=== PATIENT | female | born 1945 | race Caucasian/White ===

== ENCOUNTER → 2017-09-28 | Outpatient (CLI) | payer MEDICARE, OTHER ==
[~2017-09-28] MED LIST: PENI-24 PO
[2017-09-28 09:10] LABS: PLATELET COUNT, AUTOMATED 152 K/uL (150-450)
[2017-09-28 09:33] LABS: LDL CHOLESTEROL 93 mg/dl
== END ==
LOC: LAB 08:46
PROVIDERS: ATTEND Internal Medicine
DX: E78.00 Pure hypercholesterolemia, unspecified (principal); D72.820 Lymphocytosis (symptomatic); R00.1 Bradycardia, unspecified
CPT/HCPCS: 36415; 81001; 82040; 82247; 82310; 82374; 82435; 82465; 82565; 82947; 83718; 84075; 84132; 84155; 84295; 84443; 84450; 84460; 84478; 84520; 85025

== ENCOUNTER → 2017-10-03 | Outpatient (CLI) | payer MEDICARE, OTHER ==
[~2017-10-03] MED LIST changes: +MULT1TAB54 PO
== END ==
LOC: LAB 16:18
PROVIDERS: ATTEND Internal Medicine
DX: M79.672 Pain in left foot (principal)
CPT/HCPCS: 36415; 82607; 82746

== ENCOUNTER → 2018-02-06 | Outpatient (CLI) | payer MEDICARE, OTHER ==
--- NOTE | 2018-02-06 13:40 | RADIOLOGY IMAGING REPORT ---
FACILITY: [facility] - [place] PATIENT NAME: Bernadette Simon : 1945 MR: [id number] V: [id number] EXAM DATE: ORDERING PHYSICIAN: JAYLYN FLOWER TECHNOLOGIST: Location: [facility] - [place], [place] Patient: Bernadette Simon : 1945 Visit/Account:[id number] Date of Sevice: 02/06/2018 DEXA Scan Clinical history: Postmenopausal. Comparison: DEXA scan from 08/14/2000. LUMBAR SPINE: The bone mineral density (BMD) measured from L1-L4 correlates with a Z-score of 1.1 and a T-score of 0.3 which is Normal as defined by the World Health Organization. The corresponding risk of fracture in the lumbar spine is Not increased compared with a young adult reference population. This value bragg s decrease by 17.9 % since the prior study. More than 5% change is considered significant. HIP: Bone mineral density (BMD) measured in the LEFT total hip region correlates with a Z-score 0.3 and a T-score of -1 which is normal as defined by the World Health Organization. The corresponding risk of fracture in the hip is 2 sonia es increased compared to a young adult reference population. This value has decrease by 21.7 % since the prior study. More than 5% change is considered significant. T score left femoral neck -1.4 Bone mineral density (BMD) measured in the Femoral Neck region measures 0.839 g/cm?. IMPRESSION: 1. Lumbar spine: Normal. There has been 17.9% decrease in the bone mineral density since the previo us exam. 2. Left Total Hip: Normal. There has been 21.7% decrease in the bone mineral density since the prev ious exam. 3. Femoral Neck: Bone Mineral Density is 0.839 g/cm? The next DEXA scan of this patient should include the following sites: L1-L4 and the left hip. FRAX? WHO Fracture Risk Assessment Tool link: <http://www.shef.ac.uk/FRAX/tool.jsp?locationValue=9> PLEASE NOTE: 1) The World Health Organization defines low BMD as follows: T-score Normal > -1 Osteopenia < -1 and > -2.5 Osteoporosis < -2.5 without fractures Established osteoporosis < -2.5 with fractures 2) In general, you may wish to consider: Diagnosis Treatment Follow-up DEXA Normal BMD Prevention 2-3 years Osteopenia Prevention/therapy 1-2 years Osteoporosis Therapy Yearly 3) Fracture risk estimated from the T-score is more accurate for vertebral fractures (often spontane ous) than for hip fractures. Report Dictated By: Ximena Madsen MD at 02/06/2018 1:34 PM Report E-Signed By: Ximena Madsen MD at 02/06/2018 1:36 PM WSN:[id number]
== END ==
LOC: RAD 11:54
PROVIDERS: ATTEND Internal Medicine
DX: Z13.820 Encounter for screening for osteoporosis (principal); Z78.0 Asymptomatic menopausal state
CPT/HCPCS: 77080

== ENCOUNTER → 2018-03-12 | Outpatient (CLI) | payer MEDICARE, OTHER ==
--- NOTE | 2018-03-12 17:28 | RADIOLOGY IMAGING REPORT ---
FACILITY: [facility] - [place] PATIENT NAME: RODDY MEJÍA : [id number] MR: [id number] V: [id number] EXAM DATE: [id number] ORDERING PHYSICIAN: JAYLYN FLOWER TECHNOLOGIST: Gladis Ulloa PROCEDURE:BILATERAL DIGITAL SCREENING MAMMOGRAM WITH CAD ASSISTED INTERPRETATION & 3D TOMOSYNTHESIS COMPARISON:Prior mammograms 03/02/17, 05/25/15, 05/18/14, 04/13/13, 04/08/12, 04/04/11. INDICATIONS:screening FINDINGS: A small amount of fibroglandular tissue is seen throughout the breasts. The parenchymal pattern has remained stable allowing for difference in mammographic technique & patient positioning. There is no evidence of malignant appearing mass, malignant appearing calcifications or other secondary sign of malignancy in either breast. DIAGNOSTIC CATEGORY 1--NEGATIVE. RECOMMENDATIONS: ROUTINE MAMMOGRAM AND CLINICAL EVALUATION. IMPRESSION: BIRADS 1: Negative. No significant abnormality is seen. Dictated by: Ximena Madsen M.D. on 03/12/2018 at 15:00 Transcribed by: JAELYN on 03/12/2018 at 15:10 Approved by: Ximena Madsen M.D. on 03/12/2018 at 17:27 [facility]
== END ==
LOC: MAMO 01:19
PROVIDERS: ATTEND Internal Medicine
DX: Z12.31 Encounter for screening mammogram for malignant neoplasm of breast (principal)
CPT/HCPCS: 77063; 77067

== ENCOUNTER → 2018-08-12 | Outpatient (CLI) | payer MEDICARE, OTHER | LOC: LAB 09:23 | PROVIDERS: ATTEND Student in an Organized Health Care Education/Training Program | DX: R14.0 Abdominal distension (gaseous) (principal); R10.9 Unspecified abdominal pain | CPT/HCPCS: 36415; 82310; 82374; 82435; 82565; 82947; 84132; 84295; 84520 ==

== ENCOUNTER → 2018-08-13 | Outpatient (CLI) | payer MEDICARE, OTHER ==
[~2018-08-13] MED LIST changes: +IOPAMIDOL 61% 75 ML INFUS BTL 75 ML ONE
--- NOTE | 2018-08-13 12:56 | RADIOLOGY IMAGING REPORT ---
FACILITY: [facility] - [place] PATIENT NAME: Bernadette Simon : 1945 MR: [id number] V: [id number] EXAM DATE: ORDERING PHYSICIAN: ARTIS BONNER TECHNOLOGIST: Location: [facility] [place] Patient: Bernadette Simon : 1945 Visit/Account:[id number] Date of Sevice: 08/13/2018 CT ABDOMEN PELVIS W & W/O CONTRAST Indication: Abdominal pain, abdominal bloating, blood in stool. Comparison: None. Technique: CT lung bases to the pubic symphysis were obtained without and with IV contrast. 85 cc of Isovue 370 was used. One of the following dose optimization techniques was utilized in the performance of this exam: autom ated exposure control; adjustment of the mA and/or kV according to the patient's size; or use of an i terative reconstruction technique. Specific details can be referenced in the facility's radiology CT exam operational policy. Findings: Liver/gallbladder: Liver demonstrates normal enhancement. Mild fatty infiltration is seen adjacent t o the fissure for the falciform ligament. Gallbladder is absent. Spleen: Normal. Adrenals: Normal. Pancreas: Normal enhancement without evidence of mass. Kidneys/: Right and left kidney demonstrate normal enhancement without evidence of hydronephrosis or mass. Pelvic : Urinary bladder is normal. Calcified fibroids are seen in the uterus. GI: There is no focal abnormality in the small bowel or colon. Vessels/spaces/nodes: Negative. Bones/soft tissues: There are no lytic or blastic bone lesions. Soft tissues are normal. Lung bases: Lung bases are clear. Impression: 1. Calcified fibroids in the uterus. 2. Postoperative changes cholecystectomy. 3. Otherwise negative CT abdomen and pelvis. Report Dictated By: Jerry Red at 08/13/2018 12:48 PM Report E-Signed By: Jerry Red at 08/13/2018 12:52 PM WSN:[id number]
== END ==
LOC: CT 00:45
PROVIDERS: ATTEND Student in an Organized Health Care Education/Training Program
DX: D25.9 Leiomyoma of uterus, unspecified (principal); Z90.49 Acquired absence of other specified parts of digestive tract
CPT/HCPCS: 74178; Q9967